=== PATIENT | male | born 1945 | race Caucasian/White ===

== ENCOUNTER 2017-11-14 12:07 | Inpatient (IN) | payer MEDICARE, OTHER ==
[~2017-11-14] VITALS: Ht 180.3 cm; Wt 81.6 kg
[2017-11-14 12:59] LABS: BASOPHILS % (AUTO) 0.1 % (0-1); EOSINOPHILS # (AUTO) 0.1 X10'3 (0-0.9); EOSINOPHILS % (AUTO) 0.8 % (0-6); HEMATOCRIT 30.9 % (42.0-52.0); LYMPHOCYTES # (AUTO) 0.4 X10'3 (1.1-4.8); LYMPHOCYTES % (AUTO) 3.3 % (21-51); MEAN CORPUSCULAR HEMOGLOBIN 27.2 PG (27.0-31.0); MEAN CORPUSCULAR HGB CONC 32.4 % (33.0-36.5); MEAN CORPUSCULAR VOLUME 83.9 FL (78-98); MEAN PLATELET VOLUME 7.9 FL (7.4-10.4); MONOCYTES # (AUTO) 1.3 X10'3 (0-0.9); MONOCYTES % (AUTO) 10.1 % (2-12); NEUTROPHILS # (AUTO) 10.6 X10'3 (1.8-7.7); NEUTROPHILS % (AUTO) 85.7 % (42-75); PLATELET COUNT 308 X10'3 (140-440); RED BLOOD COUNT 3.68 X10'6 (4.70-6.10); RED CELL DISTRIBUTION WIDTH 21.2 % (11.5-14.5); WHITE BLOOD COUNT 12.4 X10'3 (4.5-11.0)
[2017-11-14 13:10] LABS: INR 1.1 INR; PARTIAL THROMBOPLASTIN TIME 29 SECONDS (22-32); PROTHROMBIN TIME 11.4 SECONDS (9.0-12.0)
[2017-11-14 13:13] LABS: ALANINE AMINOTRANSFERASE 71 U/L (12-78); ALBUMIN 1.8 G/DL (3.4-5.0); ALBUMIN/GLOBULIN RATIO 0.4 (1.1-1.5); ALKALINE PHOSPHATASE 92 IU/L (46-116); ANION GAP 14 (8-16); ASPARTATE AMINO TRANSFERASE 41 U/L (10-37); BILIRUBIN,TOTAL 0.7 MG/DL (0.1-1.0); BLOOD UREA NITROGEN 100 MG/DL (7-18); BUN/CREATININE RATIO 10.7 (5.4-32.0); CHLORIDE 94 MMOL/L (99-107); CREATININE 9.36 MG/DL (0.60-1.10); GLUCOSE 131 MG/DL (70-104); POTASSIUM 3.9 MMOL/L (3.5-5.1); SODIUM 135 MMOL/L (135-145); TOTAL CARBON DIOXIDE 26.7 MMOL/L (24-32); TOTAL PROTEIN 6.8 G/DL (6.4-8.2); eGFR 6 ML/MIN
[2017-11-14] MEDS ORDERED: methylPREDNISolone sod succ 125mg/2ml vial IV ONE (14:10)
[2017-11-14] MEDS ORDERED: CefTRIAXone 2gm/D5W 50ml 50 ML IV ONE (14:10)
[2017-11-14] MEDS ORDERED: albuterol 2.5 MG/3 ML nebule NEB ONE (14:10)
[2017-11-14] MEDS ORDERED: ipratropium/albuterol 3ml nebule NEB ONE (14:10)
[2017-11-14] MEDS ORDERED: azithromycin/NS 500mg/250ml 250 ML IV ONE (14:10)
[2017-11-14] MEDS ORDERED: mag hydrox/Alum hydrox/simeth 30ml oral suspension PO PRN (14:35)
[2017-11-14] MEDS ORDERED: ondansetron/PF 4mg/2ml inj IV PRN (14:35)
[2017-11-14] MEDS ORDERED: bisacodyl 10mg suppository rectal RC PRN (14:35)
[2017-11-14] MEDS ORDERED: dextrose ORAL solution 15 GM/59 ML bottle PO PRN ×2 (14:35)
[2017-11-14] MEDS ORDERED: HYDROcodone/acetaminophen 5mg/325mg tablet PO PRN (14:35)
[2017-11-14] MEDS ORDERED: MESSAGE TO PHARMACY PO ONE (14:35)
[2017-11-14] MEDS ORDERED: acetaminophen 325mg tablet PO PRN (14:35)
[2017-11-14] MEDS ORDERED: dextrose 50%-water 50ml dispensing syringe IV PRN ×2 (14:35)
[2017-11-14] MEDS ORDERED: HYDROcodone/acetaminophen 10/325mg tab PO PRN (14:35)
[2017-11-14] MEDS ORDERED: diphenhydrAMINE 25mg capsule PO PRN (14:35)
[2017-11-14] MEDS ORDERED: HYDROmorphone 1 mg/ml syringe IV PRN ×2 (14:35)
[2017-11-14] MEDS ORDERED: glucagon, human recombinant 1mg kit SUBCUT PRN (14:35)
[2017-11-14 15:13] LABS: HEMOGLOBIN A1C 7.7 % (4.5-6.2)
[2017-11-14] MEDS ORDERED: LIDOcaine 0.5% (5mg/ml) 50ml vial ONE (15:26)
[2017-11-14 16:12] VITALS: BP 126/78
[2017-11-14 16:54] VITALS: BP 127/53
[2017-11-14 17:08] VITALS: BP 126/86
[2017-11-14 17:53] VITALS: BP 124/69
[2017-11-14 18:00] VITALS: BP 115/50
[2017-11-14] MEDS ORDERED: LOSA100T28 PO (18:16)
[2017-11-14] MEDS ORDERED: CHOL10002 PO (18:16)
[2017-11-14] MEDS ORDERED: FOLI1TAB16 PO (18:16)
[2017-11-14] MEDS ORDERED: FOLI1TAB34 PO (18:16)
[2017-11-14] MEDS ORDERED: FURO-150 PO (18:16)
[2017-11-14] MEDS ORDERED: GABA-530 PO ×2 (18:16)
[2017-11-14] MEDS ORDERED: INSU100V9 SQ (18:16)
[2017-11-14] MEDS ORDERED: CLOP75TA33 PO (18:16)
[2017-11-14] MEDS ORDERED: CARV-50 PO (18:16)
[2017-11-14] MEDS ORDERED: AMLO5TAB PO (18:16)
[2017-11-14] MEDS ORDERED: TIOT18CA3 INH (18:16)
[2017-11-14] MEDS ORDERED: PHO667C PO (18:16)
[2017-11-14] MEDS: methylPREDNISolone sod succ 125mg/2ml vial IV SCH (20:30)
[2017-11-14] MEDS: docusate sod 100mg capsule PO SCH (20:31)
[2017-11-14] MEDS: lactobacillus rhamnosus 10,000 MMU CELLS/CAPSULE PO SCH (20:31)
[2017-11-14] MEDS: heparin, porcine 5000 units/ml vial SQ SCH (20:34)
[2017-11-14] MEDS ORDERED: insulin glargine (Lantus) pen - multi-dose SQ SCH (21:00)
[2017-11-14] MEDS ORDERED: temazepam 15mg capsule PO PRN (21:00)
[2017-11-14 22:00] VITALS: BP 124/71
[2017-11-14] MEDS: insulin Lispro (HumaLOG) vial - multi-dose SQ SCH (23:23)
[2017-11-15 02:00] VITALS: BP 146/90
[2017-11-15] MEDS: methylPREDNISolone sod succ 125mg/2ml vial IV SCH ×2 (02:56→07:40)
[2017-11-15 05:25] LABS: BASOPHILS % (AUTO) 0 % (0-1); EOSINOPHILS % (AUTO) 0 % (0-6); HEMATOCRIT 28.7 % (42.0-52.0); HEMOGLOBIN 9.3 g/dl (14.0-17.9); LYMPHOCYTES # (AUTO) 0.3 X10'3 (1.1-4.8); LYMPHOCYTES % (AUTO) 3.1 % (21-51); MEAN CORPUSCULAR HGB CONC 32.3 % (33.0-36.5); MEAN CORPUSCULAR VOLUME 83.6 FL (78-98); MEAN PLATELET VOLUME 8.7 FL (7.4-10.4); MONOCYTES # (AUTO) 0.6 X10'3 (0-0.9); MONOCYTES % (AUTO) 6.2 % (2-12); NEUTROPHILS # (AUTO) 8.5 X10'3 (1.8-7.7); NEUTROPHILS % (AUTO) 90.7 % (42-75); PLATELET COUNT 321 X10'3 (140-440); RED BLOOD COUNT 3.43 X10'6 (4.70-6.10); RED CELL DISTRIBUTION WIDTH 21.6 % (11.5-14.5); WHITE BLOOD COUNT 9.3 X10'3 (4.5-11.0)
[2017-11-15 06:00] VITALS: BP 173/84
[2017-11-15 06:10] LABS: ALBUMIN 1.7 G/DL (3.4-5.0); ANION GAP 16 (8-16); BLOOD UREA NITROGEN 99 MG/DL (7-18); BUN/CREATININE RATIO 11.2 (5.4-32.0); CALCIUM 8.4 MG/DL (8.5-10.1); CHLORIDE 92 MMOL/L (99-107); CREATININE 8.84 MG/DL (0.60-1.10); GLUCOSE 332 MG/DL (70-104); MAGNESIUM 2.7 MG/DL (1.5-2.4); PHOSPHORUS 5.4 MG/DL (2.3-4.5); POTASSIUM 3.9 MMOL/L (3.5-5.1); SODIUM 134 MMOL/L (135-145); TOTAL CARBON DIOXIDE 26.1 MMOL/L (24-32); eGFR 6 ML/MIN
[2017-11-15] MEDS: docusate sod 100mg capsule PO SCH (07:40)
[2017-11-15] MEDS: lactobacillus rhamnosus 10,000 MMU CELLS/CAPSULE PO SCH (07:40)
[2017-11-15] MEDS: heparin, porcine 5000 units/ml vial SQ SCH (07:41)
[2017-11-15] MEDS ORDERED: cefepime 1GM/NS ADD-VANTAGE 100 ML IV SCH (08:00)
[2017-11-15] MEDS: insulin Lispro (HumaLOG) vial - multi-dose SQ SCH ×2 (08:21→13:06)
[2017-11-15] MEDS ORDERED: LEVO500T2 PO (09:27)
[2017-11-15 11:00] VITALS: BP 180/93
[2017-11-15] MEDS ORDERED: levoFLOXACIN 250mg tablet PO SCH (11:00)
[2017-11-15] MEDS ORDERED: furosemide 20MG tablet PO ONE (12:00)
[2017-11-15] MEDS ORDERED: carVEDilol 12.5mg tablet PO SCH (12:00)
[2017-11-15] MEDS ORDERED: losartan 50mg tablet PO SCH (12:00)
[2017-11-15 12:55] VITALS: BP 153/73
== END 2017-11-15 13:40 | disposition home or self-care (01) | DRG 177 ==
LOC: ER 12:08 → ED HOLD 14:31 → EDBEDREQ 15:21 → PCU 3S 16:08
PROVIDERS: ADMIT Internal Medicine Critical Care Medicine; ATTEND Internal Medicine Critical Care Medicine
PROC: 0W993ZZ Drainage of Right Pleural Cavity, Percutaneous Approach (ICD-10-PCS; principal; 2017-11-14)
PROC: 3E1M39Z Irrigation of Peritoneal Cavity using Dialysate, Percutaneous Approach (ICD-10-PCS; 2017-11-14)
DX: J69.0 Pneumonitis due to inhalation of food and vomit (principal); J96.00 Acute respiratory failure, unspecified whether with hypoxia or hypercapnia; N18.6 End stage renal disease; J90 Pleural effusion, not elsewhere classified; J44.0 Chronic obstructive pulmonary disease with (acute) lower respiratory infection; J44.1 Chronic obstructive pulmonary disease with (acute) exacerbation; I13.2 Hypertensive heart and chronic kidney disease with heart failure and with stage 5 chronic kidney disease, or end stage renal disease; E11.21 Type 2 diabetes mellitus with diabetic nephropathy; I50.9 Heart failure, unspecified; E11.22 Type 2 diabetes mellitus with diabetic chronic kidney disease; I25.10 Atherosclerotic heart disease of native coronary artery without angina pectoris; I25.2 Old myocardial infarction; Z86.79 Personal history of other diseases of the circulatory system; Z87.891 Personal history of nicotine dependence; Z99.2 Dependence on renal dialysis; Z99.81 Dependence on supplemental oxygen; Z86.73 Personal history of transient ischemic attack (TIA), and cerebral infarction without residual deficits
CPT/HCPCS: 32555; 36415; 71045; 80048; 80053; 82948; 83036; 83605; 83735; 83880; 84100; 84145; 85025; 85610; 85730; 87040; 87070; 94640; 94760; 97161; 97530; A6449; J0456; J0692; J0696; J1170; J1644; J1815; J2001; J2930; J7030

== ENCOUNTER 2017-12-03 04:41 | Inpatient (IN) | payer MEDICARE, OTHER ==
[~2017-12-03] VITALS: Ht 180.3 cm; Wt 94.5 kg
[~2017-12-03 04:41] MED LIST: AMLO5TAB PO; CARV-50 PO; CHOL10002 PO; CLOP75TA33 PO; FOLI1TAB16 PO; FOLI1TAB34 PO; FURO-150 PO; GABA-530 PO; INSU100V9 SQ; LEVO500T2 PO; LOSA100T28 PO; PHO667C PO; TIOT18CA3 INH
[2017-12-03 05:24] LABS: BASOPHILS % (AUTO) 0.4 % (0-1); EOSINOPHILS # (AUTO) 0.2 X10'3 (0-0.9); EOSINOPHILS % (AUTO) 1.7 % (0-6); HEMATOCRIT 29.9 % (42.0-52.0); HEMOGLOBIN 9.8 g/dl (14.0-17.9); LYMPHOCYTES # (AUTO) 0.7 X10'3 (1.1-4.8); LYMPHOCYTES % (AUTO) 5.8 % (21-51); MEAN CORPUSCULAR HGB CONC 32.9 % (33.0-36.5); MEAN CORPUSCULAR VOLUME 85.1 FL (78-98); MEAN PLATELET VOLUME 8.5 FL (7.4-10.4); MONOCYTES # (AUTO) 1.6 X10'3 (0-0.9); NEUTROPHILS # (AUTO) 9.9 X10'3 (1.8-7.7); NEUTROPHILS % (AUTO) 79.1 % (42-75); PLATELET COUNT 284 X10'3 (140-440); RED BLOOD COUNT 3.51 X10'6 (4.70-6.10); RED CELL DISTRIBUTION WIDTH 20.2 % (11.5-14.5); WHITE BLOOD COUNT 12.5 X10'3 (4.5-11.0)
[2017-12-03 05:41] LABS: INR 1.1 INR; PARTIAL THROMBOPLASTIN TIME 29 SECONDS (22-32); PROTHROMBIN TIME 10.9 SECONDS (9.0-12.0)
[2017-12-03 05:44] LABS: ANION GAP 11 (8-16); BLOOD UREA NITROGEN 78 MG/DL (7-18); BUN/CREATININE RATIO 8.6 (5.4-32.0); CHLORIDE 95 MMOL/L (99-107); CREATININE 9.04 MG/DL (0.60-1.10); GLUCOSE 141 MG/DL (70-104); POTASSIUM 4.5 MMOL/L (3.5-5.1); SODIUM 135 MMOL/L (135-145); TOTAL CARBON DIOXIDE 29.3 MMOL/L (24-32)
[2017-12-03 05:45] LABS: ALANINE AMINOTRANSFERASE 115 U/L (12-78); ALBUMIN 1.6 G/DL (3.4-5.0); ALBUMIN/GLOBULIN RATIO 0.3 (1.1-1.5); ALKALINE PHOSPHATASE 79 IU/L (46-116); ASPARTATE AMINO TRANSFERASE 113 U/L (10-37); BILIRUBIN,TOTAL 0.6 MG/DL (0.1-1.0); CALCIUM 9.5 MG/DL (8.5-10.1); TOTAL PROTEIN 6.6 G/DL (6.4-8.2); eGFR 6 ML/MIN
[2017-12-03] MEDS ORDERED: CefTRIAXone/D5W-Rocephin 1gm 50 ML IV ONE (05:50)
[2017-12-03] MEDS ORDERED: azithromycin/NS 500mg/250ml 250 ML IV ONE (05:50)
[2017-12-03 05:51] LABS: MAGNESIUM 2.9 MG/DL (1.5-2.4); PHOSPHORUS 5.7 MG/DL (2.3-4.5)
[2017-12-03] MEDS ORDERED: FERR-116 PO (06:17)
[2017-12-03] MEDS ORDERED: ATOR80TA PO (06:17)
[2017-12-03] MEDS ORDERED: PHO667C PO (06:17)
[2017-12-03] MEDS ORDERED: ASPI-611 PO (06:17)
[2017-12-03] MEDS ORDERED: LANTUS SQ (06:17)
[2017-12-03] MEDS ORDERED: FURO-149 PO (06:17)
[2017-12-03] MEDS ORDERED: CARV-50 PO (06:17)
[2017-12-03] MEDS ORDERED: MULT-38 PO (07:14)
[2017-12-03] MEDS ORDERED: OXYC-150 PO (07:15)
[2017-12-03] MEDS ORDERED: TIOT18CA3 INH (07:15)
[2017-12-03] MEDS ORDERED: LACT10SO PO (07:18)
[2017-12-03] MEDS ORDERED: ALB0.5UD IH (07:18)
[2017-12-03] MEDS ORDERED: albuterol 2.5 MG/3 ML nebule NEB PRN (07:25)
[2017-12-03] MEDS ORDERED: insulin glargine (Lantus) pen - multi-dose SQ SCH (08:00)
[2017-12-03] MEDS: ipratropium 0.5 MG/2.5ML nebule NEB SCH ×3 (09:00→20:32)
[2017-12-03 09:15] VITALS: BP 128/78
[2017-12-03] MEDS ORDERED: heparin 10,000 units/1 ML INJ IV PRN (11:25)
[2017-12-03] MEDS ORDERED: heparin 10,000 units/1 ML INJ IV ONE (11:25)
[2017-12-03] MEDS ORDERED: cefepime 1GM/NS ADD-VANTAGE 100 ML IV ONE (12:00)
[2017-12-03] MEDS: atorvastatin 20mg tablet PO SCH (12:47)
[2017-12-03] MEDS: clopidogrel 75mg tablet PO SCH (12:47)
[2017-12-03] MEDS: ferrous sulfate 325mg tablet PO SCH (12:47)
[2017-12-03] MEDS: carVEDilol 12.5mg tablet PO SCH ×2 (12:47→19:38)
[2017-12-03] MEDS: aspirin 81mg tablet.DR PO SCH (12:48)
[2017-12-03] MEDS: calcium acetate 667mg (PhosLO) capsule PO SCH ×3 (12:48→19:38)
[2017-12-03] MEDS: multivitamins, therapeutics tablet PO SCH (12:48)
[2017-12-03] MEDS: folic acid 1mg tablet PO SCH (12:48)
[2017-12-03] MEDS: lactulose 20gm/30ml cup PO SCH ×2 (12:48→19:39)
[2017-12-03 13:23] LABS: INR 1.1 INR; PROTHROMBIN TIME 10.9 SECONDS (9.0-12.0)
[2017-12-03] MEDS ORDERED: MEGE40TA27 PO (13:27)
[2017-12-03 13:29] LABS: CHOL/HDL RATIO 3.6 (0.00-4.99); CHOLESTEROL 134 MG/DL (0-200); HDL CHOLESTEROL 37 MG/DL (35-60); LDL CHOLESTEROL 81 MG/DL (50-100); TRIGLYCERIDES 98 MG/DL (20-135)
[2017-12-03 15:00] VITALS: BP 109/96
[2017-12-03 19:00] VITALS: BP 116/60
[2017-12-03] MEDS: oxyCODONE/APAP 10/325mg tablet PO PRN (19:38)
[2017-12-03] MEDS: lactobacillus rhamnosus 10,000 MMU CELLS/CAPSULE PO SCH (19:38)
[2017-12-03] MEDS: insulin glargine (Lantus) pen - multi-dose SQ SCH (21:49)
[2017-12-03 23:00] VITALS: BP 115/61
[2017-12-04] VITALS (7 sets, daily range): BP systolic 90–131; BP diastolic 44–64
[2017-12-04] MEDS: ipratropium 0.5 MG/2.5ML nebule NEB SCH ×4 (02:59→20:38)
[2017-12-04 05:52] LABS: BASOPHILS # (AUTO) 0.1 X10'3 (0-0.2); BASOPHILS % (AUTO) 0.4 % (0-1); EOSINOPHILS % (AUTO) 0.2 % (0-6); HEMATOCRIT 27.2 % (42.0-52.0); HEMOGLOBIN 8.9 g/dl (14.0-17.9); LYMPHOCYTES # (AUTO) 0.4 X10'3 (1.1-4.8); LYMPHOCYTES % (AUTO) 3.1 % (21-51); MEAN CORPUSCULAR HEMOGLOBIN 27.8 PG (27.0-31.0); MEAN CORPUSCULAR HGB CONC 32.8 % (33.0-36.5); MEAN CORPUSCULAR VOLUME 84.6 FL (78-98); MEAN PLATELET VOLUME 8.9 FL (7.4-10.4); MONOCYTES # (AUTO) 1.7 X10'3 (0-0.9); MONOCYTES % (AUTO) 13.2 % (2-12); NEUTROPHILS # (AUTO) 10.5 X10'3 (1.8-7.7); NEUTROPHILS % (AUTO) 83.1 % (42-75); PLATELET COUNT 282 X10'3 (140-440); RED BLOOD COUNT 3.21 X10'6 (4.70-6.10); RED CELL DISTRIBUTION WIDTH 20.3 % (11.5-14.5); WHITE BLOOD COUNT 12.7 X10'3 (4.5-11.0)
[2017-12-04 06:16] LABS: ALANINE AMINOTRANSFERASE 114 U/L (12-78); ALBUMIN 1.4 G/DL (3.4-5.0); ALBUMIN/GLOBULIN RATIO 0.3 (1.1-1.5); ALKALINE PHOSPHATASE 79 IU/L (46-116); ANION GAP 8 (8-16); ASPARTATE AMINO TRANSFERASE 111 U/L (10-37); BILIRUBIN,TOTAL 0.5 MG/DL (0.1-1.0); BLOOD UREA NITROGEN 77 MG/DL (7-18); BUN/CREATININE RATIO 9.3 (5.4-32.0); CALCIUM 9.2 MG/DL (8.5-10.1); CHLORIDE 95 MMOL/L (99-107); GLUCOSE 191 MG/DL (70-104); MAGNESIUM 2.9 MG/DL (1.5-2.4); PHOSPHORUS 5.4 MG/DL (2.3-4.5); POTASSIUM 4.1 MMOL/L (3.5-5.1); SODIUM 133 MMOL/L (135-145); TOTAL CARBON DIOXIDE 30.1 MMOL/L (24-32); TOTAL PROTEIN 6.1 G/DL (6.4-8.2); eGFR 6 ML/MIN
[2017-12-04] MEDS: ferrous sulfate 325mg tablet PO SCH ×2 (08:00→08:30)
[2017-12-04] MEDS: multivitamins, therapeutics tablet PO SCH ×2 (08:00→08:30)
[2017-12-04] MEDS: folic acid 1mg tablet PO SCH ×2 (08:00→08:30)
[2017-12-04] MEDS: carVEDilol 12.5mg tablet PO SCH ×3 (08:00→20:15)
[2017-12-04] MEDS: lactulose 20gm/30ml cup PO SCH ×3 (08:00→20:15)
[2017-12-04] MEDS: lactobacillus rhamnosus 10,000 MMU CELLS/CAPSULE PO SCH ×3 (08:00→20:15)
[2017-12-04] MEDS: aspirin 81mg tablet.DR PO SCH ×2 (08:00→08:30)
[2017-12-04] MEDS: atorvastatin 20mg tablet PO SCH ×2 (08:00→08:30)
[2017-12-04] MEDS: calcium acetate 667mg (PhosLO) capsule PO SCH ×3 (08:00→20:15)
[2017-12-04] MEDS: clopidogrel 75mg tablet PO SCH ×2 (08:30→08:48)
[2017-12-04] MEDS: DEXTROSE 5% IV SCH (08:45)
[2017-12-04] MEDS: CEFEPIME IV SCH (08:45)
[2017-12-04] MEDS: WATER IV SCH (08:45)
[2017-12-04] MEDS ORDERED: dextrose ORAL solution 15 GM/59 ML bottle PO PRN ×2 (09:05)
[2017-12-04] MEDS ORDERED: dextrose 50%-water 50ml dispensing syringe IV PRN ×2 (09:05)
[2017-12-04] MEDS ORDERED: insulin Lispro (HumaLOG) vial - multi-dose SQ SCH (09:05)
[2017-12-04] MEDS ORDERED: glucagon, human recombinant 1mg kit SUBCUT PRN (09:05)
[2017-12-04] MEDS ORDERED: MESSAGE TO PHARMACY PO ONE (09:05)
[2017-12-04] MEDS ORDERED: ferrous sulfate 300mg/5ml UD oral liquid PO SCH (09:35)
[2017-12-04] MEDS ORDERED: multivitamin oral liquid (Certavite) 5ml cup PO SCH (09:35)
[2017-12-04] MEDS ORDERED: BARIUM SULFATE 340 ML SUSP.RECON***PROCEDURE AREA ONLY**DONT ENTER PO ONE (11:59)
[2017-12-04] MEDS: oxyCODONE/APAP 10/325mg tablet PO PRN (20:15)
[2017-12-04] MEDS ORDERED: insulin glargine (Lantus) pen - multi-dose SQ SCH (21:00)
[2017-12-04] MEDS: insulin glargine (Lantus) pen - multi-dose SQ SCH (21:24)
[2017-12-05] MEDS: ipratropium 0.5 MG/2.5ML nebule NEB SCH ×3 (02:39→14:47)
[2017-12-05 03:00] VITALS: BP 125/60
[2017-12-05 05:34] LABS: BASOPHILS % (AUTO) 0 % (0-1); EOSINOPHILS # (AUTO) 0.2 X10'3 (0-0.9); EOSINOPHILS % (AUTO) 1.6 % (0-6); HEMATOCRIT 24.8 % (42.0-52.0); HEMOGLOBIN 8.2 g/dl (14.0-17.9); LYMPHOCYTES # (AUTO) 0.6 X10'3 (1.1-4.8); LYMPHOCYTES % (AUTO) 5.4 % (21-51); MEAN CORPUSCULAR HEMOGLOBIN 27.9 PG (27.0-31.0); MEAN CORPUSCULAR VOLUME 84.6 FL (78-98); MEAN PLATELET VOLUME 9.2 FL (7.4-10.4); MONOCYTES # (AUTO) 1.5 X10'3 (0-0.9); MONOCYTES % (AUTO) 14.6 % (2-12); NEUTROPHILS # (AUTO) 8.1 X10'3 (1.8-7.7); NEUTROPHILS % (AUTO) 78.4 % (42-75); PLATELET COUNT 271 X10'3 (140-440); RED BLOOD COUNT 2.94 X10'6 (4.70-6.10); RED CELL DISTRIBUTION WIDTH 20.5 % (11.5-14.5); WHITE BLOOD COUNT 10.4 X10'3 (4.5-11.0)
[2017-12-05 05:34] LABS: HEP A AB, IGM Positive (Negative); HEP B CORE AB, IGM Negative (Negative); HEPATITIS C ANTIBODY 0.1 s/co ratio (0.0-0.9)
[2017-12-05 06:00] VITALS: BP 94/56
[2017-12-05 06:06] LABS: ALANINE AMINOTRANSFERASE 120 U/L (12-78); ALBUMIN 1.4 G/DL (3.4-5.0); ALBUMIN/GLOBULIN RATIO 0.3 (1.1-1.5); ALKALINE PHOSPHATASE 90 IU/L (46-116); ANION GAP 10 (8-16); ASPARTATE AMINO TRANSFERASE 128 U/L (10-37); BILIRUBIN,TOTAL 0.5 MG/DL (0.1-1.0); BLOOD UREA NITROGEN 77 MG/DL (7-18); BUN/CREATININE RATIO 9.1 (5.4-32.0); CALCIUM 9.6 MG/DL (8.5-10.1); CHLORIDE 95 MMOL/L (99-107); CREATININE 8.49 MG/DL (0.60-1.10); GLUCOSE 173 MG/DL (70-104); MAGNESIUM 2.6 MG/DL (1.5-2.4); PHOSPHORUS 5.9 MG/DL (2.3-4.5); POTASSIUM 4.1 MMOL/L (3.5-5.1); SODIUM 134 MMOL/L (135-145); eGFR 6 ML/MIN
[2017-12-05] MEDS: carVEDilol 12.5mg tablet PO SCH (07:50)
[2017-12-05] MEDS: DEXTROSE 5% IV SCH (07:50)
[2017-12-05] MEDS: calcium acetate 667mg (PhosLO) capsule PO SCH ×2 (07:50→13:00)
[2017-12-05] MEDS: WATER IV SCH (07:50)
[2017-12-05] MEDS: CEFEPIME IV SCH (07:50)
[2017-12-05] MEDS: lactobacillus rhamnosus 10,000 MMU CELLS/CAPSULE PO SCH (07:51)
[2017-12-05] MEDS: atorvastatin 20mg tablet PO SCH (07:51)
[2017-12-05] MEDS: clopidogrel 75mg tablet PO SCH (07:51)
[2017-12-05] MEDS: oxyCODONE/APAP 10/325mg tablet PO PRN (07:52)
[2017-12-05] MEDS: aspirin 81mg tablet.DR PO SCH (07:52)
[2017-12-05] MEDS: lactulose 20gm/30ml cup PO SCH (07:53)
[2017-12-05] MEDS: folic acid 1mg tablet PO SCH (07:53)
[2017-12-05 11:00] VITALS: BP 87/47
[2017-12-05] MEDS: polyethylene glycol 3350 17gm powd pack PO SCH ×2 (11:09→11:44)
[2017-12-05] MEDS ORDERED: normal saline 1000ml 1,000 ML IV ONE (11:10)
[2017-12-05] MEDS ORDERED: morphine 10mg/0.5ml (conc. morphine) oral syringe PO PRN (13:00)
[2017-12-05] MEDS ORDERED: morphine 10mg/ml inj. IV PRN (13:00)
[2017-12-05] MEDS: LORazepam 2 mg/ml vial IV PRN ×4 (14:22→21:21)
[2017-12-05 18:00] VITALS: BP 111/59
[2017-12-05] MEDS: HYDROmorphone 1 mg/ml syringe IV PRN ×3 (19:19→23:27)
[2017-12-06] MEDS: HYDROmorphone 1 mg/ml syringe IV PRN ×5 (01:28→14:33)
[2017-12-06] MEDS: LORazepam 2 mg/ml vial IV PRN ×3 (03:52→15:43)
[2017-12-06 08:00] VITALS: BP 126/59
[2017-12-06] MEDS ORDERED: scopolamine 1.5mg patch.TD72 TD ONE (14:45)
== END 2017-12-06 21:30 | disposition expired | DRG 177 ==
LOC: ER 04:42 → ED HOLD 06:55 → EDBEDREQ 07:59 → PCU 3S 08:35
PROVIDERS: ADMIT Internal Medicine Critical Care Medicine; ATTEND Internal Medicine Critical Care Medicine
PROC: 3E1M39Z Irrigation of Peritoneal Cavity using Dialysate, Percutaneous Approach (ICD-10-PCS; principal; 2017-12-03)
DX: J69.0 Pneumonitis due to inhalation of food and vomit (principal); I63.9 Cerebral infarction, unspecified; N18.6 End stage renal disease; J44.0 Chronic obstructive pulmonary disease with (acute) lower respiratory infection; E11.22 Type 2 diabetes mellitus with diabetic chronic kidney disease; Z51.5 Encounter for palliative care; Z66 Do not resuscitate; Z99.2 Dependence on renal dialysis; Z79.4 Long term (current) use of insulin; Z79.899 Other long term (current) drug therapy; Z79.02 Long term (current) use of antithrombotics/antiplatelets
CPT/HCPCS: 36415; 70450; 70551; 71045; 74018; 74230; 80053; 80061; 82140; 82948; 83540; 83550; 83605; 83735; 83880; 84100; 84134; 84145; 84439; 84443; 84484; 85025; 85610; 85730; 86160; 86705; 86709; 86803; 87040; 87070; 90935; 93005; 93880; 94640; 94760; 96365; 97110; 97162; 97530; 99285; A6257; J0456; J0692; J0696; J1170; J1815; J2060; J2270; J7030; J7060